=== PATIENT | female | born 2000 | race Caucasian/White ===

== ENCOUNTER 2023-01-15 14:55 | Emergency (ER) | payer BC, SELFPAY ==
[2023-01-15 14:59] VITALS: BP 113/66; PULSE 79; RESP 20; TEMP 36.6; O2SAT 97; BMI 19.8
--- NOTE | 2023-01-15 15:11 | CRLHL7_ITS ---
For Patients: As a result of the Century Cures Act, medical imaging exams and procedure reports are released immediately into your electronic medical record. You may view this report before your referring provider. If you have questions, please contact your health care provider. INDICATION: Shortness of breath TECHNIQUE: Two view chest. FINDINGS: The lungs are clear. The heart, mediastinum and pulmonary vessels are of normal size. There is no evidence of pleural disease. IMPRESSION: Negative chest. Dictated by Doretha Johnson MD @ 01/15/2023 4:10:53 PM (Electronically Signed)
--- NOTE | 2023-01-15 15:39 | ED_ITS ---
HPI - General Adult General Chief complaint: Cough Stated complaint: Cold Symptoms Time Seen by Provider: 01/15/23 15:00 Source: patient Mode of arrival: ambulatory Limitations: no limitations History of Present Illness HPI narrative: 22-year-old female coming in today complaining of a cough going on for about a month. Cough is worse at night when she lays down. She has a hard time falling asleep sometimes because she coughs so much. She denies shortness of breath when she is not coughing. No fevers or chills. Cough is productive of phlegm. She denies any sick contacts. She is not on any control. She denies any chest pain or traveling prior to the cough starting. 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 She is generally healthy, exercises regularly and does not take any medications. Denies smoking but does vape. Related Data Allergies Allergy/AdvReac Type Severity Reaction Status Date / Time No Known Drug Allergies Allergy Verified 01/15/23 14:59 Review of Systems Status of ROS: Reports: 10 or more systems reviewed and unremarkable except as noted in History and below [facility] Social History Smoking Status: Current every day smoker Do you use any of these nicotine containing products: Vaping Products Second hand tobacco smoke exposure: Yes How often do you have a drink containing alcohol: 2-3 times a week How many standard drinks containing alcohol do you have on a typical day: 3 or 4 How often do you have six or more drinks on one occasion: Less than monthly AUDIT-C Alcohol total score: 5 Non-prescribed substance use: marijuana (any form) service: No Exam Narrative: Exam Narrative: Well-nourished well-developed patient in no acute distress. Alert and oriented. Answers questions appropriately. Mood and affect are appropriate. Thoughts are goal oriented and rational. No tangential or magical thinking noted. Patient speaks in full sentences without needing to catch their breath. HEENT: Normocephalic atraumatic. Pupils are equally round reactive to light. Extraocular muscles are intact. Conjunctivae are moist without any icterus noted. Moist mucous membranes. Posterior pharynx is normal. Neck is soft without any lymphadenopathy or thyromegaly. No masses are appreciated. Cardiovascular: Heart is regular rate and rhythm S1 and S2 are present without any murmurs. Lungs: Clear to auscultation bilaterally no wheezes rhonchi or rales are appreciated. Patient takes deep breaths without any discomfort. Skin: Well perfused without any obvious rashes. Const: Vital Signs, click to edit/add: Vital Signs - 24 hr 01/15/23 14:59 Temperature 97.8 F Pulse Rate [Pulse Oximeter] 79 Respiratory Rate 20 Blood Pressure [Ri ght Forearm] 113/66 Pulse Oximetry 97 Oxygen Delivery Me thod Room Air Course Course Hospital Course: Chest x-ray, read be, not show any acute infiltrates or pathology. Vital Signs Vital signs: Initial Vital Signs Temperature 97.8 F 01/15/23 14:59 Temperature Source Temporal Artery Scan 01/15/23 14:59 Pulse Rate 79 01/15/23 14:59 Pulse Rhythm Regular 01/15/23 14:59 Respiratory Rate 20 01/15/23 14:59 Blood Pressure 113/66 01/15/23 14:59 Blood Pressure Mean 81 01/15/23 14:59 Blood Pressure Position Supine 01/15/23 14:59 Pulse Oximetry 97 01/15/23 14:59 Oxygen Delivery Method Room Air 01/15/23 14:59 Vital Signs Temperature 97.8 F 01/15/23 14:59 Pulse Rate 79 01/15/23 14:59 Respiratory Rate 20 01/15/23 14:59 Blood Pressure 113/66 01/15/23 14:59 Pulse Oximetry 97 01/15/23 14:59 Oxygen Delivery Method Room Air 01/15/23 14:59 Temperature 97.8 F 01/15/23 14:59 Pulse Rate 79 01/15/23 14:59 Respiratory Rate 20 01/15/23 14:59 Blood Pressure 113/66 01/15/23 14:59 Pulse Oximetry 97 01/15/23 14:59 Oxygen Delivery Method Room Air 01/15/23 14:59 Medical Decision Making MDM Narrative Medical decision making narrative: [age] year female with a cough. We discussed reflux versus postnasal drip causing her symptoms. We discussed vaping. We discussed starting a daily antihistamine as well as omeprazole for couple of weeks to see if this alleviates her symptoms and discontinuation of vaping is encouraged. Discharge Plan Discharge Clinical Impression: Cough Patient Disposition: Home, Self-Care Condition: Stable Additional Instructions: Recommend starting a daily antihistamine such as Monie or Claritin to help with potential postnasal drip. Also recommend a daily Omeprazole which is an antacid, mild reflux can also cause a continuing cough that is worse at night. Lastly, recommend you stop vaping or smoking all tobacco or marijuana products as these can cause lung irritation and coughing. If you do not see a difference in the next 2 weeks, follow-up with your primary care provider. Follow Up/Referrals: Provider,Not a Local [Primary Care Provider] - Stand Alone Forms: [employer] Info Instructions
== END 2023-01-15 15:58 | disposition home or self-care (01) ==
PROVIDERS: Emergency Provider Family Medicine
DX: R05.9 Cough, unspecified (principal)
CPT/HCPCS: 71046; 99283; 99284